=== PATIENT | male | born 1965 | race Caucasian/White ===

== ENCOUNTER 2023-10-13 13:33 | Inpatient (IN) | payer BC, SELFPAY ==
[2023-10-13] VITALS (13 sets, daily range): BP systolic 131–160; BP diastolic 83–120
--- NOTE | 2023-10-13 12:35 | ED.GENMED ---
History of Present Illness
General
Chief Complaint: Chest Pain
Source: patient
Exam Limitations: none
Time Seen by Provider: 10/13/23 12:34
Nursing documentation reviewed up to this point in time: agreed with
Travel History
Have you had any contact with someone who has COVID-19?: No
Do you have any symptoms of coronavirus? Fever > 100 degrees, chills, cough, shortness of breath, sore throat, loss of taste or smell, muscle aches, or headache?: No
History of Present Illness
History of Present Illness:
The patient is a pleasant 58-year-old man who reports that he was cutting down a tree and developed left-sided chest pain rating down the left arm. Patient appears pale and sweaty. Patient complains of severe chest pain. He reports a past medical
history of prostate problems but denies all other medical problems. EKG on arrival shows ST elevations in V2 and V3 with significant inferior lead ST depressions. Patient reports that pain started about 30 minutes prior to arrival into the ED.
Past History
Past History
ED Past Medical History: Other (Prostate issues)
ED Past Surgical History: Orthopedic (Right bicep tendon repair. Bilateral rotator cuff repair)
Social History
Tobacco: Non-smoker
Alcohol: Occasional
Drug: None
Personal: Other (Engaged)
Living: with family
Employment: Employed
Family History
Family History: Other (Noncontributory)
Review of Systems
Review of Systems
Allergies reviewed?: Yes
All Other Systems: ROS reviewed and negative except as documented in HPI and ROS
Constitutional: Reports no symptoms
EENT: Reports no symptoms
Respiratory: Reports no symptoms
Cardiac: Reports chest pain
ABD/GI: Reports no symptoms
: Reports no symptoms
Musculoskeletal: Reports no symptoms
Skin: Reports no symptoms
Neurological: Reports no symptoms
Endocrine: Reports no symptoms
Hematologic/Lymphatic: Reports no symptoms
Psychiatric: Reports no symptoms
Phy Exam
Physical Exam
Physical Exam:
Physical Exam
General: Patient is fully awake, pale and clammy
Neck: supple.
Heart: s1/s2 regular rate and rhythm,
Lungs: no acute respiratory distress.
Abdomen: Soft
Neuro: alert and oriented. no focal neurological deficits
Skin: no rash
Psychiatric: well kept. interactive and cooperative
Extremities: no edema.
Scores
Heart Score for Chest Pain Patients
STEMI patient?: Yes
Course
Orders/Labs/Results
Orders:
Orders
10/13/23 12:17
Electrocardiogram (*1) Urgent
Reason for Study: Chest Pain
EKG- Treatment ONCE
10/13/23 12:34
Complete Blood Count/With Diff Urgent
Comprehensive Metabolic Panel Urgent
Troponin I Urgent
10/13/23 12:35
Prothrombin Time Urgent
Vital Signs
Initial and Last Documented VS:
Initial Vital Signs
Pulse Resp BP Pulse Ox
91 28 149/104 99
10/13/23 12:32 10/13/23 12:32 10/13/23 12:32 10/13/23 12:32
Last Documented Vital Signs
Pulse Resp BP Pulse Ox
91 28 149/104 99
10/13/23 12:32 10/13/23 12:32 10/13/23 12:32 10/13/23 12:32
MDM/Problems Addressed
Differential Diagnosis Includes:
ST elevated MA, non-STEMI, aortic dissection
MDM/Problems Addressed:
Patient presents with acute chest pain
Acute Exacerbation and/or Progression of Chronic Illness:
Patient is acutely hypertensive which is likely due to chest pain
Acute Exacerbation and/or Progression of Chronic Illness: HTN
*Pulse Oximetry
Patient hypoxic: no
*EKG
Interpreted by ED Provider?: Yes
Interpretation: abnormal
Comparison EKG: no comparison EKG present
Rate: normal
Rhythm: sinus
[place]: normal axis
Interval: normal interval
QRS Pattern: normal QRS
Ischemia: ST elevation
*Animation Artist Interpretation
Rate: normal
Interpretation: normal
Rhythm: sinus
*Critical Care Note
Total Time (30-74mins, 75-104mins- exclusive of procedures): Not Applicable
Data Reviewed
Source: patient and spouse (Cherrie� who is at the bedside)
Prescriptions/Medications Considered But Not Given:
Patient given aspirin and Brilinta to chew. Patient given heparin bolus. Patient given 1 sublingual nitro which helped relieve some of his chest pain.
Patient Management
Discussion with other providers: Other (Dr. Katz from cardiology)
Escalation/DeEscalation of care consider admission/obs:
Patient presents with acute chest pain and EKG shows a STEMI. Therefore, patient evaluated promptly by cardiology who brought him directly to the cardiac Plaque Maker
ED Attending Note
-
Portions of this chart may have been created with voice recognition software.� Occasional wrong word or��sound alike� substitutions may have occurred due to the inherent limitations of voice recognition software.
Discharge Plan
Departure
Patient Disposition: Admit
Date of Disposition: 10/13/23
Time of Disposition: 12:39
Admit to: seed laboratory technician
Admit to doctor: Dr. Katz
Presentation/result/management discussed w/ accepting MD/DO: Cardiology
Patient with high blood pressure during this ER visit?: Yes
Condition: Critical
Discharge Problem:
Acute ST elevation myocardial infarction
Prescriptions:
No Action
tamsulosin [Flomax] 0.4 mg capsule
0.4 mg PO HS Qty: 30 0RF
Referrals:
UNKNOWN - PT NOT,INTERVIEWE [Family Provider] -
--- NOTE | 2023-10-13 12:46 | HPS.HSE ---
Family Physician
-
Family Physician: None
Chief Complaint
-
Anterior/septal STEMI
History of Present Illness
58 yo WM only history of elevated PSA follows with urology but no PCP. He was cutting down a tree for his girlfriend and developed acute left-sided chest pain radiating down the left arm, with associated diaphoresis and pallor.�EKG on arrival showed
ST elevations in V2 and V3 with significant inferior lead ST depression. He was given ASA/heparin/Brilinta 180mg in ER and brought urgently to slab lifting supervisor. He arrived with complains of 04/17 severe chest pain.
Medical History
Past Medical History
Past Medical History: Reports Other (Elevated PSA)
Past Surgical History: Reports Appendectomy (complicated, large abd incision), Orthopedic (shoulder sx, knee sx, bicept tendon repair) and Urological (prostate bx 2017, 2019. Vasectomy)
Social History
Tobacco: Non-smoker
Personal: Partner (Girlfriend who lives in [place])
Living: With Family (two children 15 &17)
Employment: Retired (contruction worker)
Family History
Family History: Not pertinent
Allergies / Home Medications
Allergies reflects when Allergies were last updated in [facility].
Home Medications with original date entered in [facility]
Allergy/Medication List:
NKDA
Medication Instructions Recorded Confirmed Type
tamsulosin 0.4 mg capsule (Flomax) 0.4 mg PO HS #30 caps 06/10/22 Rx
Review of Systems
-
History Source: Patient (deferred as patient being prepped and draped on slab lifting supervisor table)
Cardiac: Reports Chest Pain (04/17 on arrival)
Physical Exam
Vital Signs
Vital Signs
Pulse Resp BP Pulse Ox
91 28 149/104 99
10/13/23 12:32 10/13/23 12:32 10/13/23 12:32 10/13/23 12:32
Physical Exam
General: Appears in Distress (deferred as patient being prepped and draped on slab lifting supervisor table)
Data Reviewed
-
Medical Tests (Nuc Med, Echo, EKG etc): Report Reviewed by me
Impression/Plan
-
IMPRESSION/PLAN:
#Acute Anterior STEMI - urgent C
serial troponin to peak, Echo in am
DAPT ASA/Brilinta (CM to eval cost)
Check lipid profile start high intensity statin
initiate low dose BB, ACEi, monitor trends of BP
Cardiac rehab c/d
continue to monitor on tele 48 hrs
Will need to find PCP
f/u cbc cards at d/c
#Elevated PSA- continue flomax 0.4mg
[2023-10-13 12:49] LABS: % Basophils 0.7 % (0-2); % Eosinophils 1.4 % (0-6); % Immature Granulocytes 0.3 % (0-0.5); % Lymphocytes 35.7 % (20.5-51.1); % Monocytes 8.3 % (1.7-9.3); % Neutrophils 53.6 % (42.2-75.2); Absolute Basophils 0.1 10^3/uL (0-0.2); Absolute Eosinophils 0.2 10^3/uL (0-0.7); Absolute Lymphocytes 4.6 10^3/uL (1.2-3.4); Absolute Monocytes 1.1 10^3/uL (0.1-0.6); Absolute Neutrophils 6.9 10^3/uL (1.4-6.5); Hematocrit 40.6 % (39.0-52.0); Hemoglobin 13.7 g/dL (13.0-18.0); Mean Corp Hgb Conc. 33.7 g/dL (33.0-37.0); Mean Corpuscular Hgb 29.1 pg (27.0-31.0); Mean Corpuscular Volume 86.4 fL (80.0-94.0); Nucleated Red Blood Cells % 0 % (-); Platelet Count 446 10^3/uL (130-400); Red Cell Dist. Width 12.4 % (11.5-14.5); White Blood Cell Count 12.9 10^3/uL (4.8-10.8)
[2023-10-13 13:01] LABS: INR 0.93; PT 12.4 Sec (11.4-14.6)
[2023-10-13 13:04] LABS: ACT-LR - POC 173 Seconds (116-155)
[2023-10-13 13:07] LABS: ALT (SGPT) 29 U/L (0-50); AST (SGOT) 32 U/L (17-59); Albumin 4.6 g/dl (3.5-5.0); Alkaline Phosphatase 70 U/L (38-126); Blood Urea Nitrogen 16 mg/dl (9-20); Calcium 11.1 mg/dl (8.4-10.2); Carbon Dioxide 21 mmol/L (22-30); Chloride 105 mmol/L (98-107); Glucose 123 mg/dl (70-99); Potassium 3.6 mmol/L (3.5-5.1); Sodium 136 mmol/L (135-145); Total Bilirubin 0.5 mg/dl (0.2-1.3); Total Protein 7.4 g/dl (6.3-8.2); eGFR > 60.00
[2023-10-13 13:12] LABS: ACT-LR - POC 305 Seconds (116-155)
[2023-10-13 13:13] LABS: Troponin I < 0.012 ng/ml
--- NOTE | 2023-10-13 14:04 | ITS.CL.CATH ---
Biogeographer - Catheterization
Cardiac Catheterization
Procedure Report:
CARDIAC CATHETERIZATION REPORT
Date of Procedure: 10/13/2023
Referring: Jennifer Wright MD
Indication: Acute anterior STEMI for approximately 75 minutes duration
HEMODYNAMIC DATA
AO: 140/98
LV: 140/34
LEFT VENTRICULOGRAPHY: Anterolateral and apical akinesis with EF 26%
CORONARY ANGIOGRAPHY
Dominance: Right
Left Main: Normal
LAD: The LAD is proximally occluded 5 mm distal to its takeoff from the left main. There is WALTER grade 0 flow. There are no collaterals to the LAD territory.
Circumflex: Normal
RCA: 30% proximal to mid RCA stenosis. There is a second area of 30% stenosis in the mid RCA and long 30% stenosis in the distal RCA just past the crux. The medium sized PDA and small posterolateral system have mild luminal disease.
Angioplasty: At the conclusion of the diagnostic study, we proceeded with immediate intervention for the evolving anterior STEMI of approximately 90 minutes duration. Heparin was used for anticoagulation and Brilinta 180 mg had been chewed in the
emergency department. A Hi-Torque floppy wire was passed through the occlusion and positioned in a large second diagonal branch. This restored flow to the vessel and we were easily able to identify the culprit for his infarction which was in the
proximal LAD. He became electrically unstable with multifocal PVCs as soon as flow was restored and within 60 seconds had ventricular fibrillation. He was defibrillated at 200 J with immediate anabaptism of normal sinus rhythm. At this time his
chest discomfort was markedly improved and there was WALTER grade III flow in the LAD. Additionally, we were able to identify 80% ostial stenosis and the medium sized first diagonal branch, 60-70% LAD stenosis immediately distal to the takeoff of the
large second diagonal branch and 30% proximal stenosis in the large second diagonal branch. A 3.25 x 23 Xience MARILUZ was placed across the infarct lesion in the proximal LAD and deployed at 15 [place]. This was followed by postdilatation with a 3.25 NC
trek to 17 [place]. Final angiography no residual stenosis at the lesion site with WALTER grade III flow into the distal LAD and WALTER grade III flow into the diseased first diagonal branch which was now jailed. Patient had minimal residual chest
discomfort at the procedure conclusion and was transferred to the IVU.
Closure Device: None-the procedure was performed via the right radial artery. The Boni's test was normal prior to the procedure.
Radiation (mGy): 424
DAP (cm2.Gy): 42.1
Fluoroscopy time: 8.4 minutes
CONCLUSIONS
1: Evolving anterior STEMI of approximately 90 minutes duration
2: Systemic hypertension
3. Elevated LVEDP
4. Anterolateral apical akinesis with EF 26%
5. Mild RCA disease with proximal LAD occlusion (WALTER 0 flow)
6. Successful stenting of proximal LAD occlusion with placement of 3.25 x 23 Xience MARILUZ with outstanding angiographic result
7. We will plan to treat his residual CAD medically
8. Continue DAPT for minimum 12 months
Copy to: Walter Katz MD (patient has no primary physician)
Walter Katz MD, [facility], [facility]
--- NOTE | 2023-10-13 14:18 | PTCARENOTE ---
Pt received from minilab operator s/p stent placement to proximal LAD for STEMI. AAOx3. EKG obtained. NSR on gas appliance servicer. VSS. R radial TR band with 10cc remaining. Neurovascular checks WDL. IVF infusing per order through [facility]. Assessment documented.
Family at bedside.
--- NOTE | 2023-10-13 15:17 | CM ---
Reviewed chart. Met with Mr. Palencia to review discharge plans. He states prior to admission he resides in a spilt-level home without any steps to enter. He states he has seven steps to each level. He states prior to admission he was independent
with ambulation and adls He states he does not have any DME in the home. He states he has a prescription plan and uses [facility]. Telephone call to his prescription plan, ([phone]) to check on coverage for Brilinta 90 mg po bid. He will
need a prior auth. The phone number for prior auth. is ([phone]) After the prior auth is co-pay would be $30.00 a month. He can use the one month free coupon until the prior auth is completed. After the prior auth is complete he can use the
$5.00 coupon. Placed the thirty day free coupon and $5.00 coupon in his red discharge folder. Telephone call to [facility], ([phone]) to check if they have Brilinta 90 mg po bid in stock. [facility] has Brilinta 90 mg in stock. Medical
work-up in progress. The discharge plan is to return home with his children when medically stable.
[2023-10-13] MEDS: LOPRESSOR 12.5 MG PO (16:39)
[2023-10-13] MEDS: ZESTRIL 2.5 MG PO ×2 (17:02→21:42)
[2023-10-13] MEDS: LIPITOR 80 MG PO (17:04)
[2023-10-13] MEDS: TYLENOL 650 MG PO (17:55)
[2023-10-13] MEDS: ZOFRAN 4 MG PO (18:28)
[2023-10-13] MEDS: BRILINTA 90 MG PO (19:58)
[2023-10-13] MEDS: FLOMAX 0.400000000000000022 MG PO (21:43)
[2023-10-13] MEDS: MELATONIN 10 MG PO (21:43)
--- NOTE | 2023-10-13 22:35 | PTCARENOTE ---
No complaints of chest pain. notified via TT at 2134 of troponin result of 297. Attempting to sleep.
[2023-10-14] VITALS (8 sets, daily range): BP systolic 100–145; BP diastolic 78–96
[2023-10-14 05:28] LABS: Hematocrit 40.4 % (39.0-52.0); Hemoglobin 13.7 g/dL (13.0-18.0); Mean Corp Hgb Conc. 33.9 g/dL (33.0-37.0); Mean Corpuscular Hgb 29.2 pg (27.0-31.0); Mean Corpuscular Volume 86.1 fL (80.0-94.0); Mean Platelet Volume 8.9 fL (7.4-10.4); Platelet Count 382 10^3/uL (130-400); Red Blood Cell Count 4.69 10^6/uL (4.70-6.10); Red Cell Dist. Width 12.8 % (11.5-14.5); White Blood Cell Count 18.1 10^3/uL (4.8-10.8)
[2023-10-14 06:04] LABS: Blood Urea Nitrogen 14 mg/dl (9-20); Calcium 10.7 mg/dl (8.4-10.2); Carbon Dioxide 23 mmol/L (22-30); Chloride 102 mmol/L (98-107); Estimated Creatinine Clearance 119 ml/min; Glucose 117 mg/dl (70-99); HDL Cholesterol 44 mg/dl; LDL Cholesterol, Calculated 135 mg/dl; Potassium 4.5 mmol/L (3.5-5.1); Sodium 135 mmol/L (135-145); Total Cholesterol 205 mg/dl (50-199); Triglyceride 134 mg/dl (10-149); Very Low Density Lipoprotein 26 mg/dl (0-30); eGFR > 60.00
--- NOTE | 2023-10-14 08:27 | W.PN.CARDCBS ---
Addendum entered and electronically signed by Walter Katz MD 10/14/23 12:12:
Feels 'great'. No CP/SOB
Lungs clear
cor RR no murmur
No edema
BP high but improved. Metoprolol and lisinopril dose increased today
Continue DAPT
Telemetry shows NSR with some ST. There have been several episodes of NSVT up to 14 beats. All have been within 24 hrs of TN
Peak troponin 279- this is consistent with the very proximal location of his LAD occlusion. We are very hopeful to see LV recovery in the coming months. ECHO today just done and pending
A1c elevated at 6.0. I discussed his need for carb restriction as this is indicative of pre diabetes
He will need high intensity statin. I expect his LDL to be below 70 on atorvastatin 80 as baseline LDL 135.
He will need prolonged monitoring and will look for discharge Tuesday-. IF he has signficant runs of NSVT through the weekend will will discuss the option for LifeVest.
Original Note:
Today's Communication / Plan
-
Echo today
cardiac rehab
adjust meds for BP, HR
monitor on tele 24-48 hours
followup at [facility] at d/c
Impression / Plan
-
PCP: none
CDY: Oziel Katz MD
58 yo, new onset acute left-sided chest pain while doing yard work. Pain radiated down the left arm w/associated diaphoresis, pallor. EKG on arrival showed ST elevations in V2 and V3 with significant inferior lead ST depression. He was given
ASA/heparin/Brilinta 180mg in ER and brought urgently to labor relations specialist with 9/10 chest pain.
LHC- prox LAD occlusion, s/p angioplasty/MARILUZ
60-70% mid LAD distal to D2
jailed D1 with 80% ostial stenosis but with WALTER III flow
30% prox D2
30% prox-mid RCA, 30% distal rCA
complicated by 60 seconds VF, required defibrillation
LVgram- anterolateral/apical AK w/EF 26%
LVEDP 34
IMPRESSION/PLAN:
Anterior STEMI
Tele- NSR/ST 80-120s, 3-10bt NSVT w/couplets, triplets
radial cath site stable
Peak troponin 297
Echo today- EF 26% on LVgram
DAPT w/asa, brilinta
New start lopressor 12.5 BID- HR up to 100s with sitting up in bed- will increase to 25 BID- change to Toprol XL prior to d/c
lisinopril 2.5mg/daily- increase to 5mg daily- BP elevated 140s and will tolerate
high intensity statin therapy- atorvastatin 80/d- lipid profile noted
medical management of residual CAD
cardiac rehab
followup at [facility]
monitor on tele another 24-48 hours
discussion re: no strenuous activity for next 4-6 weeks. 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 He is agreeable to cardiac rehab and scaling back on work/activities post TN.
HTN- adjust meds as noted, monitor trends
HLD- new, statin as noted
Elevated glucose- HgbA1C pending
BPH w/elevated PSA-
2 previous negative prostate biopsies
follows with urology- Dr. Haynes
due for MRI- non urgent- hold off d/t recent stenting for now
continue flomax
Progress Note - Fast Food Services Manager
Subjective
Date of Service: October 14, 2023
mild cp overnight that has abated
oob ambulating to bathroom
radial cath site without pain
Objective
Labs:
10/14/23 05:14
10/14/23 05:14
Labs
Hgb 13.7 g/dL (13.0-18.0) 10/14/23 05:14
Hct 40.4 % (39.0-52.0) 10/14/23 05:14
Plt Count 382 10^3/uL (130-400) 10/14/23 05:14
PT 12.4 Sec (11.4-14.6) 10/13/23 12:37
INR 0.93 10/13/23 12:37
Sodium 135 mmol/L (135-145) 10/14/23 05:14
Potassium 4.5 mmol/L (3.5-5.1) 10/14/23 05:14
BUN 14 mg/dl (9-20) 10/14/23 05:14
Creatinine 0.7 mg/dL (0.7-1.3) 10/14/23 05:14
Glucose 117 mg/dl (70-99) H 10/14/23 05:14
Troponins
10/13/23 10/13/23 10/14/23
12:37 20:28 05:14
Troponin I < 0.012 297.000 H* D 191.000 H*
Vital Signs and I&O:
Vital Signs
Temp Pulse Resp BP Pulse Ox
97.8 F 90 16 141/96 95
10/14/23 07:35 10/14/23 07:35 10/14/23 07:35 10/14/23 04:57 10/14/23 07:35
Vital Signs
Temp Pulse Resp BP Pulse Ox
97.8 F 90 16 141/96 95
10/14/23 07:35 10/14/23 07:35 10/14/23 07:35 10/14/23 04:57 10/14/23 07:35
Physical Exam
Physical Exam
AAOx3, MAEE 5/5
RRR S1 S2 no murmurs
CTA bilat, non labored
soft abd, + bs
right radial cath site without ht/bleeding, non tender
bilat extremities w/palpable distal pulses, no edema
[2023-10-14] MEDS: BRILINTA 90 MG PO ×2 (09:22→20:10)
[2023-10-14] MEDS: LOW STRENGTH ASPIRIN 81 MG PO (09:22)
[2023-10-14] MEDS: LOPRESSOR 12.5 MG PO ×2 (09:23→10:04)
--- NOTE | 2023-10-14 09:46 | CM ---
Reviewed chart. Met with Mr Palencia to review discharge plans. He states he is feeling better. We reviewed his co-pay of $30.00 a month. but it odes need a prior auth. Reviewed with his to use the one month free coupon for his first script and
then to use the $5.00 a month coupon after the prior auth. Prior to admission he resides with his children in a spilt level home. He has seven steps to get to each level. Prior to admission he was independent with ambulation and adls. He has a
prescription plan and uses [facility]. Medical work-up in progress. The discharge plan is to return home with his children when medically stable.
--- NOTE | 2023-10-14 14:38 | PTCARENOTE ---
VSS. Pt offers no complaints. NSR on monitor.
[2023-10-14] MEDS: ZESTRIL 5 MG PO (17:23)
[2023-10-14] MEDS: LIPITOR 80 MG PO (17:24)
[2023-10-14] MEDS: LOPRESSOR 25 MG PO (20:10)
[2023-10-14] MEDS: FLOMAX 0.400000000000000022 MG PO (22:13)
[2023-10-14] MEDS: MELATONIN 10 MG PO (22:20)
[2023-10-15] VITALS (9 sets, daily range): BP systolic 81–125; BP diastolic 54–86
[2023-10-15 02:57] LABS: Hematocrit 38.2 % (39.0-52.0); Hemoglobin 13.1 g/dL (13.0-18.0); Mean Corp Hgb Conc. 34.3 g/dL (33.0-37.0); Mean Corpuscular Hgb 29.3 pg (27.0-31.0); Mean Corpuscular Volume 85.5 fL (80.0-94.0); Mean Platelet Volume 8.8 fL (7.4-10.4); Platelet Count 372 10^3/uL (130-400); Red Blood Cell Count 4.47 10^6/uL (4.70-6.10); White Blood Cell Count 16.2 10^3/uL (4.8-10.8)
[2023-10-15 03:12] LABS: Blood Urea Nitrogen 16 mg/dl (9-20); Calcium 11.3 mg/dl (8.4-10.2); Carbon Dioxide 27 mmol/L (22-30); Chloride 102 mmol/L (98-107); Estimated Creatinine Clearance 76 ml/min; Glucose 119 mg/dl (70-99); Potassium 4.8 mmol/L (3.5-5.1); Sodium 137 mmol/L (135-145); eGFR > 60.00
--- NOTE | 2023-10-15 04:30 | PTCARENOTE ---
Pt. remains NSR with infrequent PVC's on the monitor (one triplet so far this shift), VSS. No complaints of CP. Right radial cath site intact. Pt. sleeping for most of the night.
[2023-10-15] MEDS: LOPRESSOR 25 MG PO ×2 (08:21→20:20)
[2023-10-15] MEDS: LOW STRENGTH ASPIRIN 81 MG PO (08:23)
[2023-10-15] MEDS: BRILINTA 90 MG PO ×2 (08:23→20:20)
--- NOTE | 2023-10-15 09:21 | PTCARENOTE ---
Pt received from table games shift manager RN. AALisbet3. Remains in NSR on site monitor. R radial cath site open to air. Neurovascular checks WDL. VSS. Assessment documented. Plan to fit for LifeVest prior to discharge.
--- NOTE | 2023-10-15 12:31 | W.PN.CD ---
Today's Communication / Plan
-
- Loading CHF meds
- Continue Brilinta/ ASA
- Telemetry for VT
Impression / Plan
-
PCP: none
CDY: Oziel Katz MD
58 yo, new onset acute left-sided chest pain while doing yard work. Pain radiated down the left arm w/associated diaphoresis, pallor. EKG on arrival showed ST elevations in V2 and V3 with significant inferior lead ST depression. He was given
ASA/heparin/Brilinta 180mg in ER and brought urgently to laborer/key man with 9/10 chest pain.
LHC- prox LAD occlusion, s/p angioplasty/MARILUZ
60-70% mid LAD distal to D2
jailed D1 with 80% ostial stenosis but with WALTER III flow
30% prox D2
30% prox-mid RCA, 30% distal rCA
complicated by 60 seconds VF, required defibrillation
LVgram- anterolateral/apical AK w/EF 26%
LVEDP 34
IMPRESSION/PLAN:
Anterior STEMI
Tele- NSR/ST 80-120s, 3-10bt NSVT w/couplets, triplets
radial cath site stable
Peak troponin 297
Echo 10/14/23 - LVEF 30-35%- EF 26% on LVgram
-with in time PCI to LAD, will likely have a good chance of recovery to the LV systolic functions.
DAPT w/asa, brilinta
On lopressor 25 mg BID- change to Toprol XL prior to d/c
lisinopril 5mg daily- BP elevated 140s and will tolerate
high intensity statin therapy- atorvastatin 80/d- lipid profile noted
medical management of residual CAD
cardiac rehab
followup at [facility]
monitor on tele another 24-48 hours
discussion re: no strenuous activity for next 4-6 weeks. 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 He is agreeable to cardiac rehab and scaling back on work/activities post AR.
If ventricular ectopy noted over the weekend then will send home with Life Vest.
Hyperlipidemia
Total chol 205; LDL 135 mg/dl
lipitor 80 mg started
-goal LDL < 70
HTN- adjust meds as noted, monitor trends
HLD- new, statin as noted
Elevated glucose- HgbA1C - 6.0
BPH w/elevated PSA-
2 previous negative prostate biopsies
follows with urology- Dr. Haynes
due for MRI- non urgent- hold off d/t recent stenting for now
continue flomax
Physical Exam
Vital Signs/Labs
Vital Signs
Temp Pulse Resp BP Pulse Ox
98.0 F 81 20 102/64 100
10/15/23 11:06 10/15/23 08:21 10/15/23 11:06 10/15/23 08:21 10/15/23 11:06
10/14/23 10/15/23 10/16/23
06:59 06:59 07:59
Actual Weight 85.5 kg
10/15/23 02:42
10/15/23 02:42
PT 12.4 Sec (11.4-14.6) 10/13/23 12:37
INR 0.93 10/13/23 12:37
Triglycerides 134 mg/dl (10-149) 10/14/23 05:14
LDL Cholesterol, Calc 135 mg/dl 10/14/23 05:14
VLDL Cholesterol, Calc 26 mg/dl (0-30) 10/14/23 05:14
HDL Cholesterol 44 mg/dl 10/14/23 05:14
LAB Results
10/13/23 10/13/23 10/14/23
12:37 20:28 05:14
Troponin I < 0.012 297.000 H* D 191.000 H*
Physical Exam
Constitutional: No acute distress and Comfortable
EENT: Anicteric
Cardiovascular: Rhythm & rate is regular, Pedal edema is absent and JVD pressure is normal
Respiratory: Respiratory effort normal, Lungs clear to auscul., Wheeze Absent and Crackles Absent
GI: Soft, Distention absent, Non tender and Normal bowel sounds
Neuro/Psych: Alert, Oriented and AO x 3
Other: Cath Site
Data Reviewed
-
Date of Service: October 15, 2023
Medical Decision Making: Reviewed Test Results, Independent Historian Assessment and Review of Case with other Provider
EKG: Tracing Personally Visualized and interpreted
Echo: Tracing Personally Visualized and interpreted
X-Ray/CT/US/MRI/NUC/PET: Image Personally Visualized and interpreted
Labs: Labs Reviewed by me
Old Records: Reviewed
[2023-10-15] MEDS: LIPITOR 80 MG PO (17:00)
[2023-10-15] MEDS: ZESTRIL 5 MG PO (17:00)
--- NOTE | 2023-10-15 18:45 | PTCARENOTE ---
Pt received this afternoon. Pt denies any chest pain or sob. OOB independently in the room. PT states he feels great. Remains in SR, rate in the 70's to 80's. No change in assessment from am.
[2023-10-15] MEDS: MELATONIN 10 MG PO (22:19)
[2023-10-15] MEDS: FLOMAX 0.400000000000000022 MG PO (22:19)
[2023-10-16] VITALS (10 sets, daily range): BP systolic 90–125; BP diastolic 54–85
[2023-10-16 04:30] LABS: Hematocrit 35.5 % (39.0-52.0); Mean Corp Hgb Conc. 33.8 g/dL (33.0-37.0); Mean Corpuscular Hgb 29.9 pg (27.0-31.0); Mean Corpuscular Volume 88.3 fL (80.0-94.0); Mean Platelet Volume 9.1 fL (7.4-10.4); Platelet Count 322 10^3/uL (130-400); Red Blood Cell Count 4.02 10^6/uL (4.70-6.10); Red Cell Dist. Width 12.8 % (11.5-14.5); White Blood Cell Count 13.2 10^3/uL (4.8-10.8)
--- NOTE | 2023-10-16 04:43 | PTCARENOTE ---
Pt.'s monitor alarmed for bradycardia, rate 46, at 0344. Rhythm strip showing type II second degree AVB for approx. 5 seconds, then resumed baseline NSR rate 60's-70's. Pt. sleeping at the time. Woken, stated he felt fine. VSS. Sahil Triana,
PAPITO, notified, added magnesium to AM labs. Labs drawn and sent, results pending.
[2023-10-16 04:51] LABS: Blood Urea Nitrogen 24 mg/dl (9-20); Calcium 11.2 mg/dl (8.4-10.2); Carbon Dioxide 28 mmol/L (22-30); Chloride 102 mmol/L (98-107); Estimated Creatinine Clearance 83 ml/min; Glucose 100 mg/dl (70-99); Magnesium 2.3 mg/dl (1.6-2.3); Potassium 4.5 mmol/L (3.5-5.1); Sodium 135 mmol/L (135-145); eGFR > 60.00
[2023-10-16] MEDS: BRILINTA 90 MG PO ×2 (09:06→19:53)
[2023-10-16] MEDS: LOW STRENGTH ASPIRIN 81 MG PO (09:06)
--- NOTE | 2023-10-16 10:04 | W.PN.CD ---
Today's Communication / Plan
-
- Recovering well from massive anterior wall [place]
- Triplets noted on Tele but no NSVT
- Based on tele today - life vest vs medical tx
Impression / Plan
-
PCP: none
CDY: Oziel Katz MD
58 yo, new onset acute left-sided chest pain while doing yard work. Pain radiated down the left arm w/associated diaphoresis, pallor. EKG on arrival showed ST elevations in V2 and V3 with significant inferior lead ST depression. He was given
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
LHC- prox LAD occlusion, s/p angioplasty/MARILUZ
60-70% mid LAD distal to D2
jailed D1 with 80% ostial stenosis but with WALTER III flow
30% prox D2
30% prox-mid RCA, 30% distal rCA
complicated by 60 seconds VF, required defibrillation
LVgram- anterolateral/apical AK w/EF 26%
LVEDP 34
IMPRESSION/PLAN:
Anterior STEMI
Tele- NSR/ST 80-120s, 3-10bt NSVT w/couplets, triplets
-Triplets noted on the tele but no NSVT now
radial cath site stable
Peak troponin 297
Echo 10/14/23 - LVEF 30-35%- EF 26% on LVgram
-with in time PCI to LAD, will likely have a good chance of recovery to the LV systolic functions.
DAPT w/asa, brilinta
On lopressor 25 mg BID- change to Toprol XL prior to d/c
lisinopril 5mg daily- BP elevated 140s and will tolerate
high intensity statin therapy- atorvastatin 80/d- lipid profile noted
medical management of residual CAD
cardiac rehab
followup at [facility]
monitor on tele another 24-48 hours
discussion re: no strenuous activity for next 4-6 weeks. 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 He is agreeable to cardiac rehab and scaling back on work/activities post [place].
If ventricular ectopy noted over the weekend then will send home with Life Vest.
Hyperlipidemia
Total chol 205; LDL 135 mg/dl
lipitor 80 mg started
-goal LDL < 70
HTN- adjust meds as noted, monitor trends
HLD- new, statin as noted
Elevated glucose- HgbA1C - 6.0
BPH w/elevated PSA-
2 previous negative prostate biopsies
follows with urology- Dr. Haynes
due for MRI- non urgent- hold off d/t recent stenting for now
continue flomax
Physical Exam
Vital Signs/Labs
Vital Signs
Temp Pulse Resp BP Pulse Ox
98.1 F 70 16 102/54 97
10/16/23 07:13 10/16/23 03:53 10/16/23 07:13 10/16/23 03:53 10/16/23 07:13
10/16/23 04:14
10/16/23 04:14
PT 12.4 Sec (11.4-14.6) 10/13/23 12:37
INR 0.93 10/13/23 12:37
Magnesium 2.3 mg/dl (1.6-2.3) 10/16/23 04:14
Magnesium Cancelled 10/16/23 04:14
Triglycerides 134 mg/dl (10-149) 10/14/23 05:14
LDL Cholesterol, Calc 135 mg/dl 10/14/23 05:14
VLDL Cholesterol, Calc 26 mg/dl (0-30) 10/14/23 05:14
HDL Cholesterol 44 mg/dl 10/14/23 05:14
LAB Results
10/13/23 10/13/23 10/14/23
12:37 20:28 05:14
Troponin I < 0.012 297.000 H* D 191.000 H*
Physical Exam
Constitutional: No acute distress and Comfortable
EENT: Anicteric and Moist mucous membranes
Cardiovascular: Rhythm & rate is regular, Pedal edema is absent and JVD pressure is normal
Respiratory: Respiratory effort normal, Lungs clear to auscul. and Wheeze Absent
GI: Soft, Distention absent, Flat and Non tender
Neuro/Psych: Alert, Oriented and AO x 3
Data Reviewed
-
Date of Service: October 16, 2023
Medical Decision Making: Reviewed Test Results, Independent Historian Assessment, Test Interpretation and Review of Case with other Provider
EKG: Tracing Personally Visualized and interpreted
Echo: Report Reviewed by me
X-Ray/CT/US/MRI/NUC/PET: Image Personally Visualized and interpreted
Labs: Labs Reviewed by me
Old Records: Reviewed
[2023-10-16] MEDS: LOPRESSOR 25 MG PO ×2 (10:51→19:53)
[2023-10-16] MEDS: LIPITOR 80 MG PO (17:03)
--- NOTE | 2023-10-16 18:00 | PTCARENOTE ---
Pt with no ectopy today. Denies any chest pain or sob. Pt states he feels great. Pt showered this am and ambulates ad leah in the room and hallway.
[2023-10-16] MEDS: ZESTRIL 5 MG PO (18:27)
--- NOTE | 2023-10-16 21:51 | PTCARENOTE ---
Received pt at handoff. AOX3. Tele- SR. Assessment noted as documented. R jordan IAM. Offers no complaints at this time. Family at bedside. Pt OOB ambulatory in room; steady gait.
[2023-10-16] MEDS: MELATONIN 10 MG PO (22:52)
[2023-10-16] MEDS: FLOMAX 0.400000000000000022 MG PO (22:53)
[2023-10-17 03:59] VITALS: BP 100/68
[2023-10-17 07:48] VITALS: BP 94/62
--- NOTE | 2023-10-17 07:48 | W.PN.CD ---
Today's Communication / Plan
-
discharge home today
discussed extreme importance of compliance with medications, activity restriction. Encouraged participation in cardiac rehab program
Impression / Plan
-
PCP: none
CDY: Oziel Katz MD
58 yo, new onset acute left-sided chest pain while doing yard work. Pain radiated down the left arm w/associated diaphoresis, pallor. EKG on arrival showed ST elevations in V2 and V3 with significant inferior lead ST depression. He was given
ASA/heparin/Brilinta 180mg in ER and brought urgently to [employer] [employer] [facility] with 9/10 chest pain.
LHC- prox LAD occlusion, s/p angioplasty/MARILUZ
60-70% mid LAD distal to D2
jailed D1 with 80% ostial stenosis but with WALTER III flow
30% prox D2
30% prox-mid RCA, 30% distal rCA
complicated by 60 seconds VF, required defibrillation
LVgram- anterolateral/apical AK w/EF 26%
LVEDP 34
IMPRESSION/PLAN:
Anterior STEMI
Peak troponin 297
Echo 10/14/23 - LVEF 30-35%- EF 26% on LVgram
-with in time PCI to LAD, will likely have a good chance of recovery to the LV systolic functions.
DAPT w/asa, brilinta
On lopressor 25 mg BID- change to Toprol XL prior to d/c
lisinopril 5mg daily- BP elevated 140s and will tolerate
high intensity statin therapy- atorvastatin 80/d- lipid profile noted
medical management of residual CAD
cardiac rehab
followup at [facility]
discussion re: no strenuous activity for next 4-6 weeks. 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 He is agreeable to cardiac rehab and scaling back on work/activities post [place].
Only LAUREN over last 48+ hours was a single triplet. I do not recommend LifeVest. He is to notify us or return if any lightheadedness or dizziness occurs
Hyperlipidemia
Total chol 205; LDL 135 mg/dl
lipitor 80 mg started
-goal LDL < 70
HTN- adjust meds as noted, monitor trends
HLD- new, statin as noted
Elevated glucose- HgbA1C - 6.0
BPH w/elevated PSA-
2 previous negative prostate biopsies
follows with urology- Dr. Haynes
due for MRI- non urgent- hold off for at least 6 wks then can have this done electively
continue flomax
HOME TODAY on:
ASA 81 qd
Brilinta 90mg bid
Lisinopril 5mg q PM
Metoprolol ER 50mg q AM
Atorvastatin 80mg q PM
SL NTG prn
Flomax 0.4mg qPM
Physical Exam
Vital Signs/Labs
Vital Signs
Temp Pulse Resp BP Pulse Ox
98.4 F 75 16 100/68 95
10/17/23 03:10 10/17/23 04:00 10/17/23 03:10 10/17/23 03:59 10/17/23 03:10
10/16/23 04:14
10/16/23 04:14
PT 12.4 Sec (11.4-14.6) 10/13/23 12:37
INR 0.93 10/13/23 12:37
Magnesium 2.3 mg/dl (1.6-2.3) 10/16/23 04:14
Magnesium Cancelled 10/16/23 04:14
Triglycerides 134 mg/dl (10-149) 10/14/23 05:14
LDL Cholesterol, Calc 135 mg/dl 10/14/23 05:14
VLDL Cholesterol, Calc 26 mg/dl (0-30) 10/14/23 05:14
HDL Cholesterol 44 mg/dl 10/14/23 05:14
Physical Exam
Constitutional: No acute distress and Comfortable
EENT: Anicteric
Cardiovascular: Rhythm & rate is regular, S1S2 is normal and Murmur/rub/gallop absent
Respiratory: Lungs clear to auscul.
GI: Soft and Non tender
Neuro/Psych: AO x 3 and Motor deficits absent
Data Reviewed
-
Date of Service: October 17, 2023
[2023-10-17] MEDS: LOPRESSOR 25 MG PO (08:43)
[2023-10-17] MEDS: BRILINTA 90 MG PO (08:43)
[2023-10-17] MEDS: LOW STRENGTH ASPIRIN 81 MG PO (08:43)
--- NOTE | 2023-10-17 08:57 | PTCARENOTE ---
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 PIV flushes easily. plan of care reviewed w the pt and questions encouraged.
--- NOTE | 2023-10-17 09:30 | CM ---
Reviewed chart. Met with Mr. Palencia to review discharge plans. Telephone call to [facility] to confirm Brilinta 90 mg po bid is in stock. Script is filled and waiting for him. Reviewed Brilinta and using the one month free coupon until the prior auth.
is completed. Placed the free 30 day coupon and $5.00 coupon in his red discharge folder. Prior to admission he resides with his two children in a spilt level home without any steps to enter. He has seven steps to each level. Prior to admission
he was independent with ambulation and adls. He does not have any DME in the home. He has a prescription plan and uses [facility]. Medical work-up in progress. The discharge plan is to return home with his children when medically stable.
--- NOTE | 2023-10-17 09:56 | W.DS.TRANS ---
DC Summary - [employer]
-
Discharge Instructions:
Discharge Diagnosis/Procedures Anterior STEMI
Angioplasty with stent to left anterior
descending artery 10/13/23
Ischemic cardiomyopathy
Prediabetes
Dyslipidemia
Hypertension
Diet Low Cholesterol,2 Gram Sodium
Additional Diets You are pre-diabetic, please watch your intake
of carbohydrates.
Activity No strenuous activity
Additional Activity No strenuous activity, heavy lifting (>10lbs)
for the next 4 weeks.
Okay to start cardiac rehab as scheduled.
Driving Restrictions No driving for 24 hours
Bathing Restrictions None
Other Services Cardiac Rehab
Specialty Instructions Weigh Daily
Instructions:
Stand-Alone Forms: DC Instructions- Cath/EP Lab
Changes to Home Medications: Yes
Discharge Medications:
DC Medications w/original date entered in [employer]
melatonin 10 mg tablet 10 mg PO HS PRN sleep 10/13/23
aspirin 81 mg chewable tablet (Children's Aspirin) 81 mg PO DAILY #1 tab 10/14/23
atorvastatin 80 mg tablet 80 mg PO QPM #90 tabs 10/14/23
tamsulosin 0.4 mg capsule (Flomax) 0.4 mg PO HS Urinary Issue 10/14/23
ticagrelor 90 mg tablet (Brilinta) 90 mg PO BID #180 tabs 10/14/23
lisinopril 5 mg tablet 5 mg PO QPM #30 tabs 10/17/23
metoprolol succinate 50 mg tablet,extended release 24 hr (Toprol XL) 50 mg PO DAILY #90 tabs 10/17/23
nitroglycerin 0.4 mg sublingual tablet (Nitrostat) 0.4 mg sublingual Q5-15M PRN chest pain #25 tabs 10/17/23
Home Medication Changes
All medications are new except for melatonin and tamsulosin.
Pending Results: No
--- NOTE | 2023-10-17 11:03 | PTCARENOTE ---
IV line and tele monitor d/c'ed, discharge instructions, medication list, follow up appointments reviewed w the pt and questions encouraged.
== END 2023-10-17 11:06 | disposition home or self-care (01) | DRG 321 ==
LOC: IVU 13:33
PROVIDERS: Nurse Practitioner Adult Health; ADMITTING PHYSICIAN Internal Medicine Cardiovascular Disease; EMERGENCY PHYSICIAN Emergency Medicine
PROC: 4A023N7 Measurement of Cardiac Sampling and Pressure, Left Heart, Percutaneous Approach (ICD-10-PCS; 2023-10-13)
PROC: B2111ZZ Fluoroscopy of Multiple Coronary Arteries using Low Osmolar Contrast (ICD-10-PCS; 2023-10-13)
PROC: 027034Z Dilation of Coronary Artery, One Artery with Drug-eluting Intraluminal Device, Percutaneous Approach (ICD-10-PCS; 2023-10-13)
DX: I21.09 ST elevation (STEMI) myocardial infarction involving other coronary artery of anterior wall (principal); I49.01 Ventricular fibrillation; I25.5 Ischemic cardiomyopathy; I25.10 Atherosclerotic heart disease of native coronary artery without angina pectoris; I10 Essential (primary) hypertension; E78.5 Hyperlipidemia, unspecified; N40.0 Benign prostatic hyperplasia without lower urinary tract symptoms
CPT/HCPCS: 80048; 80053; 80061; 83036; 83735; 84484; 85025; 85027; 85347; 85610; 93005; 93306; 93458; 99285; C1725; C1769; C1874; C1894; C9606; Q9950

== ENCOUNTER 2023-12-02 10:35 | Outpatient (RCR) | payer BC, SELFPAY | END 2023-12-02 23:59 | disposition home or self-care (01) | LOC: CRHB 10:35 | PROVIDERS: ATTENDING PHYSICIAN Internal Medicine Cardiovascular Disease | DX: I25.10 Atherosclerotic heart disease of native coronary artery without angina pectoris (principal); I21.01 ST elevation (STEMI) myocardial infarction involving left main coronary artery; Z95.5 Presence of coronary angioplasty implant and graft | CPT/HCPCS: 93797; 93798 ==

== ENCOUNTER 2023-12-28 14:33 | Outpatient (RCR) | payer BC, SELFPAY | END 2023-12-28 23:59 | disposition home or self-care (01) | LOC: CRHB 14:33 | PROVIDERS: ATTENDING PHYSICIAN Internal Medicine Cardiovascular Disease | DX: I21.01 ST elevation (STEMI) myocardial infarction involving left main coronary artery (principal); I25.10 Atherosclerotic heart disease of native coronary artery without angina pectoris; Z95.5 Presence of coronary angioplasty implant and graft | CPT/HCPCS: 93797; 93798 ==

== ENCOUNTER → 2024-02-06 09:12 | Outpatient (REF) | payer BC, SELFPAY | LOC: RCS 09:12 | PROVIDERS: ATTENDING PHYSICIAN Nurse Practitioner | DX: I25.5 Ischemic cardiomyopathy (principal) | CPT/HCPCS: 93308; 93321; 93325; Q9950 ==

== ENCOUNTER → 2025-04-12 09:17 | Outpatient (REF) | payer BC, SELFPAY | LOC: RCS 09:17 | PROVIDERS: ATTENDING PHYSICIAN Student in an Organized Health Care Education/Training Program | DX: I25.10 Atherosclerotic heart disease of native coronary artery without angina pectoris (principal); I25.5 Ischemic cardiomyopathy | CPT/HCPCS: 93306 ==